=== PATIENT | female | born 1925 | race Caucasian/White ===

== ENCOUNTER 2017-06-20 09:07 | Emergency (ER) | payer OTHER ==
[~2017-06-20] VITALS: Ht 160 cm; Wt 63.6 kg
[~2017-06-20 09:07] MED LIST: ALLO100T PO; AMLO1CAP PO; ASCO1CAP3 PO; ASPI81TA28 PO; BACI1OIN20; CALC500C70 PO; CHOL20007 PO; DICL1GEL28 TOP; EZET10TA38 PO; IPRA1AER2 INH; LEVO75TA PO; MORP1CAP96 PO; MULT-506 PO; OXYC5TAB PO; SENN-61 PO; SERT-234 PO; TRAZ50TA35 PO
[2017-06-20 09:18] VITALS: TEMP 36.6; Ht 160 cm; Wt 63.6 kg
[2017-06-20] MEDS ORDERED: ONDANSETRON 8 MG/54 ML D5W IV STA (10:04)
[2017-06-20] MEDS ORDERED: SODIUM CHLORIDE 0.9% 1000ML 1,000 ML IV STA (10:04)
[2017-06-20] MEDS ORDERED: MoRPHine SULFATE 4 MG/ML 1 ML CARP\\VIAL IV PRN (10:15)
[2017-06-20 10:20] LABS: BASO % 0.5 %; BASO ABS # 0.04 K/uL (0-0.2); EOS % 4.2 %; EOS ABS # 0.34 K/uL (0-0.5); HEMATOCRIT 35.1 % (37-47); HEMOGLOBIN 11.7 g/dL (12.0-16.0); IG# 0.01 K/uL (0.00-0.02); LYMPH % 47.3 %; LYMPH ABS # 3.82 K/uL (1.2-3.4); MEAN CELL VOLUME 97.2 fL (80-100); MEAN CORPUSCULAR HEMOGLOBIN 32.4 pg (25-34); MEAN CORPUSCULAR HGB CONC 33.3 g/dl (32-36); MEAN PLATELET VOLUME 10.4 fL (7.4-10.4); MONO ABS # 0.81 K/uL (0.11-0.59); NEUT % 37.9 %; NEUT ABS # 3.05 K/uL (1.4-6.5); PLATELET COUNT 238 K/uL (130-400); RED CELL DISTRIBUTION WIDTH CV 14.2 % (11.5-14.5); RED CELL DISTRIBUTION WIDTH SD 50.7 fL (36.4-46.3); WHITE BLOOD COUNT 8.07 K/uL (4.8-10.8)
[2017-06-20 10:36] LABS: ALBUMIN 3.7 gm/dl (3.4-5.0); ALT/SGPT 16 U/L (12-78); AST/SGOT 19 U/L (15-37); BLOOD UREA NITROGEN 18 mg/dl (7-18); CALCIUM 8.5 mg/dl (8.5-10.1); CARBON DIOXIDE 22 mmol/L (21-32); CREATININE 1.32 mg/dl (0.60-1.20); GLUCOSE 130 mg/dl (70-99); LIPASE 273 U/L (73-393); SODIUM 141 mmol/L (136-145)
[2017-06-20 10:39] LABS: ALKALINE PHOSPHATASE 88 U/L (45-117); TOTAL PROTEIN 7.7 gm/dl (6.4-8.2)
[2017-06-20] MEDS ORDERED: MORP1CAP47 PO (10:39)
[2017-06-20] MEDS ORDERED: HYDR-5806 PO (10:39)
[2017-06-20] MEDS ORDERED: METO25TA3 PO (10:39)
[2017-06-20] MEDS ORDERED: LEVO88TA PO (10:39)
[2017-06-20] MEDS ORDERED: DOCU100C PO (10:39)
[2017-06-20] MEDS ORDERED: SERT1TAB71 PO (10:39)
[2017-06-20] MEDS ORDERED: MORP1CAP91 PO (10:39)
--- NOTE | 2017-06-20 10:48 | DIAGNOSTIC IMAGING REPORT ---
CHEST ONE VIEW PORTABLE CLINICAL HISTORY: 89 years-old Female presenting with EVALUATE ALTERED MENTAL STATUS/WEAKNESS. TECHNIQUE: Portable upright AP view of the chest was obtained. COMPARISON: 04/17/2015. FINDINGS: Atherosclerosis of aortic arch. Tortuous descending thoracic aorta. Cardiac silhouette enlarged. Mild pulmonary vascular prominence. No focal opacity. No large effusion or pneumothorax. Degenerative changes of the thoracic spine. Surgical clips noted in the right axilla. IMPRESSION: 1. Cardiomegaly. No other convincing evidence of acute cardiopulmonary disease. Electronically signed by: Marc Champagne M.D. 06/20/2017 10:47 AM Dictated Date/Time: 06/20/2017 10:46 AM
[2017-06-20 10:52] LABS: PTT PATIENT 21.3 SECONDS (21.0-31.0)
--- NOTE | 2017-06-20 11:08 | DIAGNOSTIC IMAGING REPORT ---
HEAD WITHOUT CONTRAST (CT) CLINICAL HISTORY: 89 years-old Female presenting with EVALUATE ALTERED MENTAL STATUS/WEAKNESS, vomiting, bradycardia. TECHNIQUE: Multidetector CT imaging of the head was performed without the use of intravenous contrast. IV contrast: None. A dose lowering technique was used consistent with the principles of ALARA (as low as reasonably achievable). COMPARISON: 04/17/2015. CT DOSE (mGy.cm): The estimated cumulative dose is 537.48 mGy.cm. FINDINGS: [employer] topogram: Unremarkable. Proportional ventricular and sulcal prominence, likely age-related parenchymal volume loss. Periventricular and subcortical white matter hypoattenuation, nonspecific but likely indicative of chronic small vessel ischemic change. No mass effect or midline shift. No hemorrhage or acute territorial infarct. No extra-axial fluid collection. Paranasal sinuses and mastoid air cells clear. Calvarium intact. Calcification in the anterior left globe. IMPRESSION: 1. Chronic small vessel ischemic change. No acute intracranial abnormality. Electronically signed by: Marc Champagne M.D. 06/20/2017 11:07 AM Dictated Date/Time: 06/20/2017 11:05 AM
--- NOTE | 2017-06-20 11:21 | DIAGNOSTIC IMAGING REPORT ---
ABD/PELVIS NO IV OR ORAL CONT CLINICAL HISTORY: 89 years-old Female presenting with vomiting. TECHNIQUE: Multidetector CT of the abdomen and pelvis was performed without the use of intravenous contrast. IV contrast: None. A dose lowering technique was used consistent with the principles of ALARA (as low as reasonably achievable). COMPARISON: None. CT DOSE (mGy.cm): The estimated cumulative dose is 743.48 mGy.cm. FINDINGS: Nnp topogram: Unremarkable. Lung bases: Minimal basilar opacities, likely atelectasis. Multichamber enlargement of the heart. Coronary artery calcification. No pericardial or pleural effusion. Liver: Normal morphology. Normal density. Biliary: Moderate central intrahepatic and extrahepatic biliary ductal dilatation. No radiopaque common duct stones. Normal gallbladder. Pancreas: Moderate pancreatic ductal dilatation in the pancreatic head with significant atrophy of the majority of the pancreatic parenchyma. No gross evidence of an obstructing mass allowing for noncontrast technique. Spleen: Normal noncontrast appearance. Adrenal glands: Nodular thickening of the left adrenal gland, nonspecific. Right adrenal gland normal. Kidneys and ureters: Multiple well-defined hypodensities in the kidneys, indeterminate but likely hepatic cysts. Small subcapsular lipoma suggested on the left. No nephrolithiasis. No hydronephrosis. Ureters normal. Bladder: Normal. Pelvic organs: Uterus surgically absent. Bowel: Diverticulosis of the distal sigmoid colon. Moderate stool burden throughout the colon. No pericolonic fat infiltration. Large hiatal hernia. Peritoneal cavity: No free fluid or intraperitoneal gas. Lymph nodes: No gross lymphadenopathy allowing for noncontrast technique. Vasculature: Atherosclerosis of the normal caliber abdominal aorta. Abdominal wall: Diastasis of the rectus abdominis. Slight asymmetry of right breast parenchyma in comparison to the left. Postsurgical changes of the midline infraumbilical ventral abdominal wall. Musculoskeletal: Degenerative changes of the spine. IMPRESSION: 1. No acute intra-abdominal pathology. 2. Diverticulosis without evidence of diverticulitis. 3. Moderate stool burden. 4. Biliary ductal dilatation and moderate pancreatic ductal dilatation. No gross evidence of an obstructing mass or radiopaque calculus. Right renal ultrasound for evaluation for cholelithiasis to be considered. Electronically signed by: Marc Champagne M.D. 06/20/2017 11:19 AM Dictated Date/Time: 06/20/2017 11:11 AM
[2017-06-20] MEDS ORDERED: PROCHLORPERAZINE 5 MG/ML 2 ML VIAL IV STA (11:32)
[2017-06-20] MEDS ORDERED: PROCHLORPERAZINE INJ 10 MG in SYRINGE 8 ML IV ONE (12:00)
[2017-06-20 12:01] VITALS: BP 168/63
[2017-06-20 12:07] VITALS: PULSE 61; O2SAT 95
[2017-06-20] MEDS ORDERED: ONDA4TAB10 SL (12:37)
[2017-06-20] MEDS ORDERED: CMPS25 PR (12:37)
--- NOTE | 2017-06-20 12:38 | EMERGENCY ROOM VISIT NOTE ---
History Report prepared by Wandaibe: Linnea Acosta Under the Supervision of: Katie BolanosO. First contact with patient: 09:58 Chief Complaint: VOMITING Stated Complaint: ILLNESS Nursing Triage Summary: Per EMS pt not feeling well yesterday, started vomiting 2 hours ago, HL 22g, Zofran 4mg IV given by EMS, Skin w/d, Color pale, abd soft, non tender, no BS heard, pt states last ate , last night, had normal BM yesterday, pt actively vomiting, HR drops into the 30s when pt vomits History of Present Illness The patient is a 89 year old female who presents to the Emergency Room with complaints of persistent vomiting since 0700 this morning. She is accompanied by several family members. Her son reports she called him this morning complaining of nausea and vomiting, so they called EMS. Zofran was given in the field and has provided minimal relief. Her family states she last ate last night and had a normal BM yesterday. They note the patient also complained of a headache yesterday, but otherwise seemed well when they last saw her before this morning. The patient denies any abdominal pain. She states she was able to take her regular pain medication this morning and thinks she was able to keep it down. The patient last saw her PCP on June 02 for persistent "dizzy spells ". Her family states they come in to check on the patient about "2 to 3 times a week". Source of History: patient, family Onset: 0700 this morning Position: other (global) Timing: other (persistent) Modifying Factors (Relieving): anti-emetics (Zofran) Associated Symptoms: + headache, No abdominal pain Review of Systems See HPI for pertinent positives & negatives. A total of 10 systems reviewed and were otherwise negative. Past Medical & Surgical Medical Problems: (1) Encephalopathy (2) GI bleed Family History FH: cancer FH: heart disease FH: hypertension FH: kidney disease Social History Smoking Status: Never Smoker Alcohol Use: none Drug Use: none Marital Status: Housing Status: lives alone Occupation Status: retired Current/Historical Medications Scheduled Allopurinol (Zyloprim), 100 MG PO DAILY Ascorbic Acid (Vitamin C), 1 CAP PO DAILY Aspirin (Aspirin Ec), 81 MG PO DAILY Calcium/Vitamin D (Os-Vini 500 Plus D), 1 TAB PO DAILY Cholecalciferol (Vitamin D3), 1 TAB PO DAILY Diclofenac Sod (Voltaren 1% Top Gel), TOP Q4 Docusate Sodium (Stool Softener), 200 MG PO HS Levothyroxine Sodium (Synthroid), 88 MCG PO DAILY Metoprolol Succ (Toprol Xl) (Toprol-Xl), 25 MG PO HS Morphine Sulfate (Angela Ext Rel), 20 MG PO QAM Morphine Sulfate (Morphine Sulfate Er), 10 MG PO QPM Multivitamin (Multivitamin), 1 TAB PO DAILY Sertraline Hcl (Zoloft), 50 MG PO QAM Trazodone Hcl (Trazodone), 50 MG PO HS Scheduled PRN Hydrocodone-Acetaminophen (Hydrocodone Bitartrate/AC 10-325 mg), 1 TAB PO 5XD PRN for Pain Miscellaneous Medications Bacitracin-Polymyxin B (Ophth) (Ak-Poly-Dragan), 500-10,000 UNITS Allergies Coded Allergies: No Known Allergies (Unverified , 06/20/17) Physical Exam Vital Signs Date Time Temp Pulse Resp B/P (MAP) Pulse Ox O2 Delivery O2 Flow Rate FiO2 06/20/17 12:07 61 95 Nasal Cannula 2.0 06/20/17 12:01 55 18 168/63 87 Room Air 06/20/17 11:20 62 18 176/66 95 Room Air 06/20/17 11:11 179/66 06/20/17 10:38 62 18 182/70 95 Room Air 06/20/17 10:07 60 16 94 06/20/17 10:01 182/70 06/20/17 09:37 63 06/20/17 09:22 175/77 06/20/17 09:18 36.6 57 18 175/77 95 Room Air 06/20/17 09:18 36.6 59 18 175/ 95 Room Air Physical Exam CONSTITUTIONAL/VITAL SIGNS: Reviewed / noted above. GENERAL: Non-toxic in appearance, vomiting during exam. INTEGUMENTARY: Warm, dry, and Clar[place]. HEAD: Normocephalic. EYES: without scleral icterus or trauma. ENT/OROPHARYNX: clear and moist. LYMPHADENOPATHY/NECK: Is supple without lymphadenopathy or meningismus. RESPIRATORY: Lungs clear and equal. CARDIOVASCULAR: Regular rate and rhythm. GI/ABDOMEN: Soft and nontender. No organomegaly or pulsatile mass. No rebound or guarding. Normal bowel sounds. EXTREMITIES: Warm and well perfused. BACK: No CVA tenderness. NEUROLOGICAL: Intact without focal deficits. PSYCHIATRIC: normal affect. MUSCULOSKELETAL: Normally developed with good muscle tone. Medical Decision & Procedures ER Provider Diagnostic Interpretation: Radiology results as stated below per my review and radiologist interpretation: CHEST ONE VIEW PORTABLE CLINICAL HISTORY: 89 years-old Female presenting with EVALUATE ALTERED MENTAL STATUS/WEAKNESS. TECHNIQUE: Portable upright AP view of the chest was obtained. COMPARISON: 04/17/2015. FINDINGS: Atherosclerosis of aortic arch. Tortuous descending thoracic aorta. Cardiac silhouette enlarged. Mild pulmonary vascular prominence. No focal opacity. No large effusion or pneumothorax. Degenerative changes of the thoracic spine. Surgical clips noted in the right axilla. IMPRESSION: 1. Cardiomegaly. No other convincing evidence of acute cardiopulmonary disease. Electronically signed by: Marc Champagne M.D. 06/20/2017 10:47 AM HEAD WITHOUT CONTRAST (CT) CLINICAL HISTORY: 89 years-old Female presenting with EVALUATE ALTERED MENTAL STATUS/WEAKNESS, vomiting, bradycardia. TECHNIQUE: Multidetector CT imaging of the head was performed without the use of intravenous contrast. IV contrast: None. A dose lowering technique was used consistent with the principles of ALARA (as low as reasonably achievable). COMPARISON: 04/17/2015. CT DOSE (mGy.cm): The estimated cumulative dose is 537.48 mGy.cm. FINDINGS: [employer] topogram: Unremarkable. Proportional ventricular and sulcal prominence, likely age-related parenchymal volume loss. Periventricular and subcortical white matter hypoattenuation, nonspecific but likely indicative of chronic small vessel ischemic change. No mass effect or midline shift. No hemorrhage or acute territorial infarct. No extra-axial fluid collection. Paranasal sinuses and mastoid air cells clear. Calvarium intact. Calcification in the anterior left globe. IMPRESSION: 1. Chronic small vessel ischemic change. No acute intracranial abnormality. Electronically signed by: Marc Champagne M.D. 06/20/2017 11:07 AM ABD/PELVIS NO IV OR ORAL CONT CLINICAL HISTORY: 89 years-old Female presenting with vomiting. TECHNIQUE: Multidetector CT of the abdomen and pelvis was performed without the use of intravenous contrast. IV contrast: None. A dose lowering technique was used consistent with the principles of ALARA (as low as reasonably achievable). COMPARISON: None. CT DOSE (mGy.cm): The estimated cumulative dose is 743.48 mGy.cm. FINDINGS: [employer] topogram: Unremarkable. Lung bases: Minimal basilar opacities, likely atelectasis. Multichamber enlargement of the heart. Coronary artery calcification. No pericardial or pleural effusion. Liver: Normal morphology. Normal density. Biliary: Moderate central intrahepatic and extrahepatic biliary ductal dilatation. No radiopaque common duct stones. Normal gallbladder. Pancreas: Moderate pancreatic ductal dilatation in the pancreatic head with significant atrophy of the majority of the pancreatic parenchyma. No gross evidence of an obstructing mass allowing for noncontrast technique. Spleen: Normal noncontrast appearance. Adrenal glands: Nodular thickening of the left adrenal gland, nonspecific. Right adrenal gland normal. Kidneys and ureters: Multiple well-defined hypodensities in the kidneys, indeterminate but likely hepatic cysts. Small subcapsular lipoma suggested on the left. No nephrolithiasis. No hydronephrosis. Ureters normal. Bladder: Normal. Pelvic organs: Uterus surgically absent. Bowel: Diverticulosis of the distal sigmoid colon. Moderate stool burden throughout the colon. No pericolonic fat infiltration. Large hiatal hernia. Peritoneal cavity: No free fluid or intraperitoneal gas. Lymph nodes: No gross lymphadenopathy allowing for noncontrast technique. Vasculature: Atherosclerosis of the normal caliber abdominal aorta. Abdominal wall: Diastasis of the rectus abdominis. Slight asymmetry of right breast parenchyma in comparison to the left. Postsurgical changes of the midline infraumbilical ventral abdominal wall. Musculoskeletal: Degenerative changes of the spine. IMPRESSION: 1. No acute intra-abdominal pathology. 2. Diverticulosis without evidence of diverticulitis. 3. Moderate stool burden. 4. Biliary ductal dilatation and moderate pancreatic ductal dilatation. No gross evidence of an obstructing mass or radiopaque calculus. Right renal ultrasound for evaluation for cholelithiasis to be considered. Electronically signed by: Marc Champagne M.D. 06/20/2017 11:19 AM Laboratory Results 06/20/17 08:45 Red Blood Count 3.61, Mean Corpuscular Volume 97.2, Mean Corpuscular Hemoglobin 32.4, Mean Corpuscular Hemoglobin Concent 33.3, Mean Platelet Volume 10.4, Neutrophils (%) (Auto) 37.9, Lymphocytes (%) (Auto) 47.3, Monocytes (%) (Auto) 10.0, Eosinophils (%) (Auto) 4.2, Basophils (%) (Auto) 0.5, Neutrophils # (Auto ) 3.05, Lymphocytes # (Auto) 3.82, Monocytes # (Auto) 0.81, Eosinophils # (Auto ) 0.34, Basophils # (Auto) 0.04 06/20/17 08:45 Test 06/20/17 08:45 06/20/17 10:25 White Blood Count 8.07 K/uL (4.8-10.8) Red Blood Count 3.61 M/uL (4.2-5.4) Hemoglobin 11.7 g/dL (12.0-16.0) Hematocrit 35.1 % (37-47) Mean Corpuscular Volume 97.2 fL (80-100) Mean Corpuscular Hemoglobin 32.4 pg (25-34) Mean Corpuscular Hemoglobin Concent 33.3 g/dl (32-36) Platelet Count 238 K/uL (130-400) Mean Platelet Volume 10.4 fL (7.4-10.4) Neutrophils (%) (Auto) 37.9 % Lymphocytes (%) (Auto) 47.3 % Monocytes (%) (Auto) 10.0 % Eosinophils (%) (Auto) 4.2 % Basophils (%) (Auto) 0.5 % Neutrophils # (Auto) 3.05 K/uL (1.4-6.5) Lymphocytes # (Auto) 3.82 K/uL (1.2-3.4) Monocytes # (Auto) 0.81 K/uL (0.11-0.59) Eosinophils # (Auto) 0.34 K/uL (0-0.5) Basophils # (Auto) 0.04 K/uL (0-0.2) RDW Standard Deviation 50.7 fL (36.4-46.3) RDW Coefficient of Variation 14.2 % (11.5-14.5) Immature Granulocyte % (Auto) 0.1 % Immature Granulocyte # (Auto) 0.01 K/uL (0.00-0.02) Anion Gap 10.0 mmol/L (3-11) Est Creatinine Clear Calc Drug Dose 25.9 ml/min Estimated GFR () 41.4 Estimated GFR (Non- 35.7 BUN/Creatinine Ratio 13.9 (10-20) Calcium Level 8.5 mg/dl (8.5-10.1) Magnesium Level 1.6 mg/dl (1.8-2.4) Total Bilirubin 0.3 mg/dl (0.2-1) Direct Bilirubin < 0.1 mg/dl (0-0.2) Aspartate Amino Transf (AST/SGOT) 19 U/L (15-37) Alanine Aminotransferase (ALT/SGPT) 16 U/L (12-78) Alkaline Phosphatase 88 U/L (45-117) Total Creatine Kinase 70 U/L (26-192) Creatine Kinase MB 1.0 ng/ml (0.5-3.6) Creatine Kinase MB Ratio 1.4 (0-3.0) Troponin I < 0.015 ng/ml (0-0.045) Total Protein 7.7 gm/dl (6.4-8.2) Albumin 3.7 gm/dl (3.4-5.0) Lipase 273 U/L (73-393) Prothrombin Time 10.1 SECONDS (9.0-12.0) Prothromb Time International Ratio 1.0 (0.9-1.1) Activated Partial Thromboplast Time 21.3 SECONDS (21.0-31.0) Partial Thromboplastin Ratio 0.8 Laboratory results as stated above per my review. Medications Administered Medications (Trade) Dose Ordered Sig/Liz Route Start Time Stop Time Status Last Admin Dose Admin Sodium Chloride 1,000 ml @ 250 mls/hr Q4H STAT IV 06/20/17 10:04 06/20/17 14:03 06/20/17 10:37 250 MLS/HR Morphine Sulfate (MoRPHine SULFATE INJ) 4 mg Q1H PRN IV 06/20/17 10:15 07/04/17 10:14 06/20/17 10:36 4 MG Ondansetron HCl (Zofran 8mg Iv) 8 mg NOW STAT IV 06/20/17 10:04 06/20/17 10:06 DC 06/20/17 10:36 8 MG Prochlorperazine Edisylate 10 mg/ Syringe 10 ml @ 5 mls/min NOW ONCE IV 06/20/17 12:00 06/20/17 12:01 DC 06/20/17 11:48 5 MLS/MIN ECG Per My Interpretation Indication: vomiting Rate (beats per minute): 72 Rhythm: sinus rhythm Findings: LBBB, no ectopy, other (no ST elevation) Change: no significant change (LBBB is seen in previous EKG from 04/18/2015) ED Course 1000: Previous medical records were reviewed. The patient was evaluated in room A9. A complete history and physical examination was performed. 1004: Zofran 8 mg IV, NSS 1000 ml @ 250 mls/hr IV. 1015: Morphine Sulfate 4 mg IV. 1200: Compazine 10 ml @ 5 mls/min IV. 1222: On reevaluation, the patient is resting comfortably and feeling well. I discussed the results and findings with the patient. She verbalized agreement of the treatment plan. She was discharged home. Medical Decision Etiologies such as gastroenteritis, food borne illness, infections, appendicitis , diverticulitis, inflammatory bowel disease, obstruction, GI bleed, biliary pathology, as well as others were entertained. This is an 89-year-old female who presents to the ED with a chief complaint of nausea and vomiting and dizziness. The past symptoms started at 7 AM this morning. Yesterday she was feeling fine. She did report a headache yesterday and this morning as well. The patient does have active vomiting during the interview and therefore review of systems was somewhat limited. History was also obtained by the family. The patient's physical exam did not reveal any abdominal tenderness and she denies abdominal pain. She does chronically take morphine for arthritis. Her physical exam was otherwise benign. CT scan of the abdomen and pelvis revealed no acute disease. There was some moderate stool. This is likely related to chronic narcotic use. There is no evidence of obstruction. Chest x-ray did not show acute disease and a CT scan of the brain did not show acute process. CBC and complete metabolic panel were unremarkable. Troponin was negative and lipase was negative. The patient was told the results of the test. The patient was feeling much better after treatment. Her symptoms could be related to a viral syndrome or possibly narcotic withdrawal. She was treated with IV morphine here as well as IV Zofran and IV Compazine. She feels comfortable going home. She was given a prescription for Zofran and rectal Compazine. Medication Reconcilliation Current Medication List: was personally reviewed by me Blood Pressure Screening Patient's blood pressure: Elevated blood pressure Blood pressure disposition: Referred to PCP Impression Primary Impression: Vomiting Scribe Attestation The scribe's documentation has been prepared under my direction and personally reviewed by me in its entirety. I confirm that the note above accurately reflects all work, treatment, procedures, and medical decision making performed by me. Departure Information Dispostion Home / Self-Care Prescriptions Prochlorperazine (Compazine Supp) 25 Mg Supp 25 MG IA Q12H for 7 Days, #14 SUPP Prov: Husam Mancilla D.O. 06/20/17 Ondasetron Odt (ZOFRAN ODT) 4 Mg Tab 4 MG SL Q6H for Nausea, #15 TAB Prov: Husam Mancilla D.O. 06/20/17 Referrals Eren Baxter M.D. (PCP) Patient Instructions ED Nausea Vomiting, My [facility] Additional Instructions Zofran: Allow one tablet to dissolve under the tongue every 6 hours as needed for nausea or vomiting. Compazine rectally as prescribed as needed for nausea or vomiting. Take your home medications. Follow-up with your doctor for further care and evaluation in 1-2 days. Return to the emergency department for worsening or new symptoms or any concerns. You have been examined and treated today on an emergency basis only. This is not a substitute for, or an effort to provide, complete comprehensive medical care. It is impossible to recognize and treat all injuries or illnesses in a single emergency department visit. It is therefore important that you follow up closely with your doctor. Call as soon as possible for an appointment.
== END 2017-06-20 13:00 | disposition home or self-care (01) ==
LOC: EDUNIT# 09:07 → C.EDA 09:08
DX: R11.10 Vomiting, unspecified (principal); Z79.82 Long term (current) use of aspirin; Z79.899 Other long term (current) drug therapy